=== PATIENT | female | born 1935 | race Caucasian/White ===

== ENCOUNTER → 2016-11-03 | Outpatient (CLI) | payer MEDICARE, OTHER ==
[~2016-11-03] MED LIST: ATOR20TA66 PO; BENZ100C23 PO; CALC600T12 PO; CARB1TAB19 PO; DOCU100C37 PO; ETD300C PO; GABA-486 PO; LEVO75TA PO; MAGN400O7 PO; MAGN400T6 PO; Multivitamins/Minerals Therap PO; OXC10TCR PO; Oxycodone Hcl PO; PANT40TA3 PO; TRAM50TA2 PO; TRIA1TAB5 PO
--- OUTSIDE RECORDS SUMMARY | 2016-11-03 09:41 | XMS REPORT | Continuity of Care Document ---
Author Author [facility] Organization [facility] Address Unknown Phone Unavailable Care Team Providers Care Finishing Operator Name Role Phone NO, LOCAL PHYSICIAN PCP Unavailable Insurance Providers Payer Name Policy Number Subscriber Name Relationship [employer]ps Medicare [id number] Stanley Mcguire 18 Self / Same As Patient [employer] [id number] Kg Mcguire 01 Advance Directives Directive Response Recorded Date/Time Advance Directives Yes 09/06/16 4:27pm Health Care Power of Matrix Drier Tender Y nichole johnson 09/06/16 4:27pm Organ Donor No 09/06/16 4:27pm Resuscitation Status Full Code 09/06/16 4:27pm Chief Complaint and Reason for Visit Chief Complaint DEBILITY Reason for Visit Pelvic fracture Problems Active Problems Medical Problem Onset Date Status Pelvic fracture Unknown Acute Medications Current Home Medications Medication Dose Units Route Directions Days/Qty Instructions Start Date Atorvastatin Calcium 20 Mg 20 Mg Oral Bedtime 30 09/19/16 Etodolac 300 Mg 300 Mg Oral Twice A Day With Meals 30 09/19/16 Oxycodone Hcl 10 Mg 10 Mg Oral Twice A Day 40 09/19/16 Tramadol Hcl 50 Mg 100 Mg Oral Give Every 8 Hrs On Schedule 40 Gabapentin 100 Mg 100 Mg Oral Twice A Day 60 09/19/16 Carbidopa/Levodopa 1 Each 1 Ea Oral Bedtime 30 09/19/16 Calcium Carbonate 600 Mg 600 Mg Oral Daily@0700 30 09/19/16 Triamterene/Hydrochlorothiazid 1 Each 0.5 Ea Oral Daily 30 09/19/16 Benzonatate 100 Mg 100 Mg Oral Three Times A Day 90 09/19/16 Magnesium Oxide 400 Mg 400 Mg Oral Daily 30 09/19/16 Docusate Sodium 100 Mg 100 Mg Oral Twice A Day 60 09/19/16 Magnesium Hydroxide 400 Mg/5 Ml 30 Ml Oral Twice A Day as needed for Constipation 1 09/19/16 Levothyroxine Sodium 75 Mcg 75 Mcg Oral Daily@0630 30 09/19/16 Pantoprazole Sodium 40 Mg 40 Mg Oral Twice Daily Before Meals 40 09/19 [Multivitamins/Minerals Therap] 1 Ea 1 Ea Oral Daily@0700 30 09/19/16 [Oxycodone Hcl] 5 Mg 10 Mg Oral Every 4HRS as needed for Breakthrough Pain 40 09/20/16 Social History Social History Problem Response Recorded Date/Time Alcohol Use Rarely Uses 09/06/2016 4:24pm Recreational Drug Use No 09/06/2016 4:24pm Recent Foreign Travel No 09/06/2016 4:18pm Recent Infectious Disease Exposure No 09/06/2016 4:18pm Hospitalization with Isolation Denies 09/20/2016 4:03pm Sexually Transmitted Disease No 09/06/2016 4:24pm HIV/AIDS No 09/06/2016 4:24pm Smoking Status Never a Smoker 09/06/2016 4:23pm Recent Hopitalizations Y araceli in [place] for hip fx 2016 09/06/2016 4:24pm Sexually Transmitted Disease No 09/06/2016 4:24pm Hospitalization with Isolation Denies 09/20/2016 4:03pm Query Response Start Date Stop Date Smoking Status Never a Smoker Hospital Discharge Instructions No hospital discharge instructions. Plan of Care Discharge Date 09/20/16 3:20pm Disposition 09 ADMITTED INPATIENT Instructions/Education Provided CHRONIC PAIN Preventing Falls in the Older Adult Going Home From the Hospital Pelvic Fracture (DC) Forms Provided Rehab Team Conference Summary Prescriptions See Medication Section Referrals BONITA YOUSSEF MD (Unspecified) - Address: [address] [place] [id number] Reason(s) for Referral: See Dr. Youssef , @ [phone]. (Unspecified) - Today Reason(s) for Referral: Pelvic fracture Care Plan and Goals Functional Status Query Response Date Recorded Patient Orientation Person Place Time Situation September 20, 2016 9:55am Patient Orientation Person Place Time Situation Eyes Open September 20, 2016 4:03pm Comprehension Ability Understands Concepts September 20, 2016 8:10am Allergies, Adverse Reactions, Alerts Allergen Type Severity Reaction Status Last Updated Penicillins ([id number]) Allergy Unknown Active 09/06/16 Tetracyclines ([id number]) Allergy Unknown Active 09/06/16 Sulfa (Sulfonamide Antibiotics) ([id number]) Allergy Unknown Active 06/14 lorazepam ([id number]) Allergy Unknown Active 09/06/16 Clindamycin Allergy Unknown Active 09/06/16 Celecoxib Allergy Unknown Active 09/06/16 rofecoxib ([id number]) Allergy Unknown Active 09/06/16 valdecoxib ([id number]) Allergy Unknown Active 09/06/16 Immunizations No immunization records. Vital Signs Acute Vital Signs Vital Response Date/Time Temperature (Fahrenheit) 95.9 degrees F (97.6 - 99.5) 09/20/2016 3:20pm Temperature (Calculated Celsius) 35.07865 degrees C (36.4 - 37.5) 09/20/2016 5:00am Temperature Source Tympanic 09/20/2016 3:20pm Pulse Rate (adult) 74 bpm (60 - 90) 09/20/2016 3:20pm Respiratory Rate 20 bpm (12 - 24) 09/20/2016 3:20pm O2 Sat by Pulse Oximetry 98 % (88 - 100) 09/20/2016 3:20pm Blood Pressure 127/61 mm Hg 09/20/2016 3:20pm Blood Pressure Mean 83 mm Hg 09/20/2016 5:00am Pain Numeric Pain Scale 3 09/20/2016 3:20pm Height (Feet) 5 feet 09/06/2016 4:18pm Height (Inches) 5.00 inches 09/06/2016 4:18pm Height (Calculated Centimeters) 165.006383 cm 09/06/2016 4:18pm Weight (Pounds) 180 pounds 09/16/2016 6:05am Weight (Ounces) 9.0 oz 09/16/2016 6:05am Weight (Calculated Grams) 29768.773 gm 09/16/2016 6:05am Weight (Calculated Kilograms) 81.309828 kilograms 09/16/2016 6:05am Calculated BMI 30.3 09/06/2016 4:18pm Results Laboratory Results Test Name Result Units Flags Reference Collection Date/Time Result Date/ Time Comments White Blood Count 6.6 10^3/uL 4.3-11.0 09/19/2016 5:am 09/19/2016 8: 24am Red Blood Count 3.73 10^6/uL L 4.35-5.85 09/19/2016 5:09/19/2016 8: 24am Hemoglobin 10.8 G/DL L 11.5-16.0 09/19/2016 5:09/19/2016 8:24am Hematocrit 35 % 35-52 09/19/2016 5:09/19/2016 8:24am Mean Corpuscular Volume 93 FL 80-99 09/19/2016 5:09/19/2016 8: 24am Mean Corpuscular Hemoglobin 29 PG 25-34 09/19/2016 5:09/19/2016 8: 24am Mean Corpuscular Hemoglobin Concent 31 G/DL L 32-36 09/19/2016 5: 8:24am Red Cell Distribution Width 15.8 % H 10.0-14.5 09/19/2016 5:2015 8:24am Platelet Count 399 10^3/uL 130-400 09/19/2016 5:09/19/2016 8:24am Mean Platelet Volume 9.3 FL 7.4-10.4 09/19/2016 5:am 09/19/2016 8: 24am Neutrophils (%) (Auto) 50 % 42-75 09/14/2016 5:54am 09/14/2016 6:13am Lymphocytes (%) (Auto) 24 % 12-44 09/14/2016 5:54am 09/14/2016 6:13am Monocytes (%) (Auto) 13 % H 0-12 09/14/2016 5:54am 09/14/2016 6:13am Eosinophils (%) (Auto) 13 % H 0-10 09/14/2016 5:54am 09/14/2016 6:13am Basophils (%) (Auto) 0 % 0-10 09/14/2016 5:54am 09/14/2016 6:13am Neutrophils # (Auto) 3.2 X 10^3 1.8-7.8 09/14/2016 5:54am 09/14/2016 6: 13am Lymphocytes # (Auto) 1.5 X 10^3 1.0-4.0 09/14/2016 5:54am 09/14/2016 6: 13am Monocytes # (Auto) 0.8 X 10^3 0.0-1.0 09/14/2016 5:54am 09/14/2016 6: 13am Eosinophils # (Auto) 0.8 10^3/uL H 0.0-0.3 09/14/2016 5:54am 09/14/2016 6 :13am Basophils # (Auto) 0.0 10^3/uL 0.0-0.1 09/14/2016 5:54am 09/14/2016 6: 13am Neutrophils % (Manual) 55 % 09/14/2016 5:54am 09/14/2016 6:55am Band Neutrophils 0 % 09/14/2016 5:54am 09/14/2016 6:55am Lymphocytes % (Manual) 18 % 09/14/2016 5:54am 09/14/2016 6:55am Monocytes % (Manual) 17 % 09/14/2016 5:54am 09/14/2016 6:55am Eosinophils % (Manual) 10 % 09/14/2016 5:54am 09/14/2016 6:55am Basophils % (Manual) 0 % 09/14/2016 5:54am 09/14/2016 6:55am Hypochromasia SLIGHT 09/14/2016 5:54am 09/14/2016 6:55am Poikilocytosis SLIGHT 09/14/2016 5:54am 09/14/2016 6:55am Anisocytosis SLIGHT 09/14/2016 5:54am 09/14/2016 6:55am Urine Color YELLOW 09/12/2016 9:55pm 09/12/2016 10:11pm Urine Clarity CLEAR 09/12/2016 9:55pm 09/12/2016 10:11pm Urine pH 7 5-9 09/12/2016 9:55pm 09/12/2016 10:11pm Urine Specific [place] 1.005 * 1.016-1.022 09/12/2016 9:55pm 2015 10:11pm Urine Protein NEGATIVE NEGATIVE 09/12/2016 9:55pm 09/12/2016 10:11pm Urine Glucose (UA) NEGATIVE NEGATIVE 09/12/2016 9:55pm 09/12/2016 10: 11pm Urine RBC (Auto) NEGATIVE NEGATIVE 09/12/2016 9:55pm 09/12/2016 10: 11pm Urine Ketones NEGATIVE NEGATIVE 09/12/2016 9:55pm 09/12/2016 10:11pm Urine Nitrite NEGATIVE NEGATIVE 09/12/2016 9:55pm 09/12/2016 10:11pm Urine Bilirubin NEGATIVE NEGATIVE 09/12/2016 9:55pm 09/12/2016 10: 11pm Urine Urobilinogen NORMAL MG/DL NORMAL 09/12/2016 9:55pm 09/12/2016 10: 11pm Urine Leukocyte Esterase 1+ * NEGATIVE 09/12/2016 9:55pm 09/12/2016 10: 11pm Urine RBC NONE /HPF 09/12/2016 9:55pm 09/12/2016 10:11pm Urine WBC 0-2 /HPF 09/12/2016 9:55pm 09/12/2016 10:11pm Urine Bacteria NEGATIVE /HPF 09/12/2016 9:55pm 09/12/2016 10:11pm Urine Crystals NONE /LPF 09/12/2016 9:55pm 09/12/2016 10:11pm Urine Casts NONE /LPF 09/12/2016 9:55pm 09/12/2016 10:11pm Urine Mucus NEGATIVE /LPF 09/12/2016 9:55pm 09/12/2016 10:11pm Urine Culture Indicated NO 09/12/2016 9:55pm 09/12/2016 10:11pm Sodium Level 134 MMOL/L L 135-145 09/20/2016 5:40am 09/20/2016 6:46am Potassium Level 3.5 MMOL/L L 3.6-5.0 09/20/2016 5:40am 09/20/2016 6:46am Chloride Level 95 MMOL/L L 98-107 09/20/2016 5:40am 09/20/2016 6:46am Carbon Dioxide Level 26 MMOL/L -09/20/2016 5:40am 09/20/2016 6: 46am Anion Gap 13 MMOL/L 5-09/20/2016 5:40am 09/20/2016 6:46am Blood Urea Nitrogen 9 MG/DL -09/20/2016 5:40am 09/20/2016 6:46am Creatinine 1.01 MG/DL 0.60-1.30 09/20/2016 5:40am 09/20/2016 6:46am BUN/Creatinine Ratio 9 09/20/2016 5:40am 09/20/2016 6:46am Estimat Glomerular Filtration Rate 53 09/20/2016 5:40am 09/20/2016 6:46am GFR INTERPRETIVE DATA UNITS FOR ESTIMATED GFR (eGFR): mL/min/1.73 M2 REFERENCE RANGE FOR ESTIMATED GFR (eGFR) eGFR NORMAL eGFR >60 MODERATELY DECREASED eGFR 30-59 SEVERLY DECREASED eGFR 15-29 KIDNEY FAILURE <15 (OR DIALYSIS) Glucose Level 81 MG/DL 70-105 09/20/2016 5:40am 09/20/2016 6:46am Calcium Level 9.3 MG/DL 8.5-10.1 09/20/2016 5:40am 09/20/2016 6:46am Total Bilirubin 0.6 MG/DL 0.1-1.0 09/13/2016 6:18am 09/13/2016 6:47am Alkaline Phosphatase 78 U/L 40-136 09/13/2016 6:18am 09/13/2016 6:47am Aspartate Amino Transf (AST/SGOT) 25 U/L 5-34 09/13/2016 6:18am 2015 6:47am Alanine Aminotransferase (ALT/SGPT) 17 U/L 0-55 09/13/2016 6:18am 09/13 6:47am Total Protein 5.8 G/DL L 6.4-8.2 09/13/2016 6:18am 09/13/2016 6:47am Albumin 3.1 G/DL L 3.2-4.5 09/13/2016 6:18am 09/13/2016 6:47am Thyroid Stimulating Hormone (TSH) 0.02 UIU/ML L 0.35-4.94 09/07/2016 7: 18am 09/07/2016 12:54pm Stool Occult Blood Immunoassay POSITIVE * NEGATIVE 09/19/2016 8:50pm 10:16pm Vitamin B12 Level 1481 pg/mL H 200-1000 09/09/2016 10:15am 09/12/2016 11: 53am Test performed at [facility], CLIA# [id number] [address] [place] [address] Procedures No known history of procedures. Encounters Encounter Location Arrival/Admit Date Discharge/Depart Date Attending Provider Discharged Inpatient [facility] 09/06/16 3:10pm 3:20pm OSCAR LUONG MD Recent Diagnosis Pelvic fracture
--- NOTE | 2016-11-03 15:41 | Diagnostic Imaging Report ---
Examination: DEXA scan. Indication: osteopenia Technique: Bone mineral density estimated based on dual energy radiography over the lumbar spine and femoral necks, was performed. Findings: The lumbar spine T-score is -0.4. T score over the left femoral neck is -0.8 and on the right side is -0.8. Impression: Bone mineral density measurements near the lower limits of normal.. Dictated by: Dictated on workstation # [id number]
== END ==
LOC: RAD 09:37
PROVIDERS: ATTEND Orthopaedic Surgery
DX: M81.0 Age-related osteoporosis without current pathological fracture (principal)
CPT/HCPCS: 77080

== ENCOUNTER 2018-10-16 05:35 | Outpatient (CLI) | payer MEDICARE ==
[~2018-10-16] VITALS: Ht 160 cm; Wt 81.9 kg
[~2018-10-16 05:35] MED LIST changes: +BENZ-36 PO; -BENZ100C23 PO
[2018-10-16] MEDS ORDERED: LEVO100T7 PO (10:28)
[2018-10-16] MEDS ORDERED: UBID1CAP53 PO (10:28)
[2018-10-16] MEDS ORDERED: CARB1TAB44 PO (10:28)
[2018-10-16] MEDS ORDERED: ZOLP5TAB7 PO (10:28)
[2018-10-16] MEDS ORDERED: GABA-486 PO (10:28)
[2018-10-16] MEDS ORDERED: NF-ESOM40C PO (10:28)
[2018-10-16] MEDS ORDERED: DICL75TA2 PO (10:28)
[2018-10-16] MEDS ORDERED: LUTE40CA PO (10:30)
== END 2018-10-16 10:45 ==
LOC: PREOP 05:35
PROVIDERS: ATTEND Otolaryngology Otolaryngology/Facial Plastic Surgery
DX: Z01.818 Encounter for other preprocedural examination (principal)

== ENCOUNTER 2018-10-19 09:29 | Day surgery (SDC) | payer MEDICARE, OTHER ==
[~2018-10-19] VITALS: Ht 160 cm; Wt 81.9 kg
[~2018-10-19 09:29] MED LIST changes: +CARB1TAB44 PO; +DICL75TA2 PO; +LEVO100T7 PO; +LUTE40CA PO; +NF-ESOM40C PO; +UBID1CAP53 PO; +ZOLP5TAB7 PO
[2018-10-19 09:35] VITALS: BP 174/82
--- NOTE | 2018-10-19 10:27 | Progress Note-Pre Operative ---
Pre-Operative Progress Note H&P Reviewed The H&P was reviewed, patient examined and no changes noted. Date Seen by Provider: Oct 19, 2018 Time Seen by Provider: 10:30 Date H&P Reviewed: Oct 19, 2018 Time H&P Reviewed: 10:30 Pre-Operative Diagnosis: Skin cancer-Nose UDAY CALDWELL MD Oct 19, 2018 10:27
[2018-10-19] MEDS ORDERED: proPOfol 200 MG/20 ML (DIPRIVAN) VIAL IV ONE (10:44)
[2018-10-19] MEDS ORDERED: LIDOCAINE PF 2% 5 ML (XYLOCAINE) VIAL ONE (10:44)
[2018-10-19] MEDS ORDERED: ONDANSETRON 4 MG/2 ML (SDV) Z0FRAN ONE (10:44)
[2018-10-19] MEDS ORDERED: ROCURONIUM 10 MG/ML 5 ML SYRINGE IV ONE (10:44)
[2018-10-19] MEDS ORDERED: DEXAMETHASONE 10 MG/ML (DECADRON) 1 ML VIAL ONE (10:44)
[2018-10-19] MEDS ORDERED: SEVOFLURANE (ULTANE) 15 ML INHAL SOLN ONE ×4 (10:45→12:23)
[2018-10-19] MEDS ORDERED: fentaNYL INJECTION 100 MCG/2 ML AMP ONE (10:45)
[2018-10-19 11:06] LABS: BASOPHILS # (AUTO) 0.1 10^3/uL (0.0-0.1); BASOPHILS % (AUTO) 1 % (0-10); EOSINOPHILS # (AUTO) 0.2 10^3/uL (0.0-0.3); EOSINOPHILS % (AUTO) 4 % (0-10); HEMATOCRIT 37 % (35-52); HEMOGLOBIN 12.1 G/DL (11.5-16.0); LYMPHOCYTES # (AUTO) 1.4 X 10^3 (1.0-4.0); LYMPHOCYTES % (AUTO) 22 % (12-44); MEAN CORPUSCULAR HEMOGLOBIN 30 PG (25-34); MEAN CORPUSCULAR HGB CONC 32 G/DL (32-36); MEAN CORPUSCULAR VOLUME 91 FL (80-99); MEAN PLATELET VOLUME 9.2 FL (7.4-10.4); MONOCYTES # (AUTO) 0.6 X 10^3 (0.0-1.0); MONOCYTES % (AUTO) 9 % (0-12); NEUTROPHILS # (AUTO) 4.1 X 10^3 (1.8-7.8); NEUTROPHILS % (AUTO) 65 % (42-75); PLATELET COUNT 235 10^3/uL (130-400); RED CELL DISTRIBUTION WIDTH 14.7 % (10.0-14.5); WHITE BLOOD COUNT 6.4 10^3/uL (4.3-11.0)
[2018-10-19 11:23] LABS: CALCIUM 9.1 MG/DL (8.5-10.1); CREATININE SERUM 1.13 MG/DL (0.60-1.30); POTASSIUM 3.5 MMOL/L (3.6-5.0)
[2018-10-19] MEDS ORDERED: LIDOCAINE/EPI 1%-1:100,000 (XYLOCAINE) 20ML ONE (11:38)
[2018-10-19] MEDS ORDERED: MUPIROCIN 2% OINT 22 GM (BACTROBAN) TUBE ONE (11:55)
[2018-10-19] MEDS ORDERED: BSS 15 ML ONE (12:07)
--- NOTE | 2018-10-19 12:08 | Progress Note-Post Operative ---
Post-Operative Progess Note Surgeon (s)/Demonstrator Knitting (s) Surgeon UDAY CALDWELL MD Demonstrator Knitting n/a Pre-Operative Diagnosis Skin cancer-Nose Post-Operative Diagnosis same Post-Op Procedure Note Date of Procedure: Oct 19, 2018 Name of Procedure Performed: Excision of Left nasal dorsum basal kenya lwith repair with local advancement flap Description & Findings Description and Findings: n/a Anesthesia Type get Estimated Blood Loss minimal Packing none. Specimen(s) collected/removed Left Nasal lesion to patholgy for review UDAY CALDWELL MD Oct 19, 2018 12:08
[2018-10-19] MEDS ORDERED: HYDROcodone/APAP 5 MG/325 MG (LORTAB) TAB PO PRN (12:15)
[2018-10-19] MEDS ORDERED: ACETAMINOPHEN 325 MG TABLET PO PRN (12:15)
[2018-10-19] MEDS ORDERED: NEOSTIGMINE 1 MG/ML 5 ML SYRINGE ONE (12:18)
[2018-10-19] MEDS ORDERED: GLYCOPYRROLATE 0.2 MG/ML (ROBINUL) 2 ML VIAL ONE (12:18)
[2018-10-19 13:25] VITALS: BP 143/77
[2018-10-19 13:55] VITALS: BP 142/57
[2018-10-19] MEDS ORDERED: LACTATED RINGERS 1,000 ML IV PRN (14:11)
[2018-10-19] MEDS ORDERED: HYDR-3812 PO (14:15)
[2018-10-19 14:25] VITALS: BP 129/65
[2018-10-19 14:35] VITALS: BP 129/65
== END 2018-10-19 14:35 | disposition home or self-care (01) ==
LOC: SDC 09:29
PROVIDERS: ATTEND Otolaryngology Otolaryngology/Facial Plastic Surgery
DX: C44.311 Basal cell carcinoma of skin of nose (principal); I48.91 Unspecified atrial fibrillation; K21.9 Gastro-esophageal reflux disease without esophagitis; N39.0 Urinary tract infection, site not specified; Z79.899 Other long term (current) drug therapy
CPT/HCPCS: 36415; 80048; 85025; 87081; 93005

== ENCOUNTER 2021-09-17 15:19 | Emergency (ER) | payer MEDICARE, OTHER ==
[~2021-09-17] VITALS: Ht 162.5 cm; Wt 79.4 kg
[~2021-09-17 15:19] MED LIST changes: +ACHD5005 PO; -CALC600T12 PO; +CALC600T91 PO; -MAGN400T6 PO; +MGX400T PO; -PANT40TA3 PO; +PANT40TA52 PO; -TRAM50TA2 PO; +TRM50T PO
[2021-09-17] MEDS ORDERED: ACETAMINOPHEN 500 MG TAB (TYLENOL) ONE (15:37)
--- NOTE | 2021-09-17 15:37 | ED General ---
General Chief Complaint: Fever-Adult/Adol Stated Complaint: WEAKNESS, N/V Nursing Triage Note: PT TO [facility] 7 BY WHEELCHAIR WITH COMPLAINT OF FEVER, NAUSEA, VOMITING, DIARRHEA, WEAKNESS SINCE MONDAY. PER DAUGHTER, SHE TOOK PT TO [facility] IN [place] ON MONDAY. TESTED NEGATIVE FOR FLU, COVID. Source of Information: Patient, Family Exam Limitations: No Limitations History of Present Illness Date Seen by Provider: Sep 17, 2021 Time Seen by Provider: 15:33 Initial Comments to ER by private vehicle accompanied by daughter from home. Patient lives in [facility] and sees Dr. Ibrahim. Her daughter lives here in [place]. Starting on 09/12/2021 patient had intermittent fevers up to 102 degrees, general weakness, nausea and diarrhea. She has only had diarrhea twice today and is nonbloody. She denies abdominal pain. She denies pain anywhere except for some body aches. She has had some urinary symptoms. She was seen at [facility] in [place] last week for the symptoms tested negative for Covid, negative for influenza and was diagnosed with urinary tract infection and put empirically on cephalexin 500 mg 4 times daily. She has a history of hyponatremia & pneumonia a few months ago at [facility]. They have been limiting water intake and using Gatorade instead to help replenish sodium. She denies any cough. Timing/Duration: 1 Week Severity: Moderate Associated Systoms: Nausea/Vomiting, Weakness Allergies and Home Medications Allergies Coded Allergies: clindamycin (Verified Allergy, Severe, GI UPSET/SEVERE DIARRHEA, 10/16/18) rofecoxib (Verified Allergy, Severe, IRR HR, 10/16/18) Penicillins (Verified Allergy, Mild, RASH, 10/16/18) Sulfa (Sulfonamide Antibiotics) (Verified Allergy, Mild, HIVES, 10/16/18) celecoxib (Verified Allergy, Mild, HIVES, 10/16/18) lorazepam (Verified Allergy, Mild, RASH, 10/16/18) valdecoxib (Verified Allergy, Mild, RASH, 10/16/18) Tetracyclines (Verified Allergy, Unknown, 09/06/16) Patient Home Medication List Home Medication List Reviewed: Yes Atorvastatin Calcium (Atorvastatin Calcium) 20 Mg Tablet, 20 MG PO HS Prescribed by: OSCAR LUONG on 09/19/16 2496 Calcium Carbonate (Calcium) 600 Mg Tablet, 600 MG PO DAILY@0700 Prescribed by: OSCAR LUONG on 09/19/16 170 Carbidopa/Levodopa (Carbidopa-Levo 25-100 mg Odt) 1 Each Tab.rapdis, 2 EACH PO HS, (Reported) Entered as Reported by: BETH LUCAS on 10/16/18 1028 Diclofenac Sodium (Diclofenac Sodium) 75 Mg Tablet.dr, 75 MG PO BID, (Reported) Entered as Reported by: BETH LUCAS on 10/16/18 1028 Esomeprazole Magnesium (Nexium) 40 Mg Cap, 40 MG PO DAILY, (Reported) Entered as Reported by: BETH LUCAS on 10/16/18 1028 Gabapentin (Gabapentin) 100 Mg Capsule, 100 MG PO TID PRN for PAIN-MILD, (Reported) Entered as Reported by: BETH LUCAS on 10/16/18 1028 Hydrocodone Bit/Acetaminophen (Lortab 5 Mg Tablet) 1 Each Tablet, 1 EACH PO Q4H PRN for PAIN-MODERATE Prescribed by: VIK DOUGLASS on 10/19/18 1415 Levothyroxine Sodium (Levothyroxine Sodium) 100 Mcg Tablet, 100 MCG PO DAILY, (Reported) Entered as Reported by: BETH LUCAS on 10/16/18 1028 Lutein (Lutein) 40 Mg Capsule, 40 MG PO DAILY, (Reported) Entered as Reported by: BETH LUCAS on 10/16/18 1030 Magnesium Oxide (Magnesium Oxide) 400 Mg Tablet, 400 MG PO DAILY Prescribed by: OSCAR LUONG on 09/19/16 170 Triamterene/Hydrochlorothiazid (Triamterene-Hctz 75-50 mg Tab) 1 Each Tablet, 0.5 EA PO DAILY Prescribed by: OSCAR LUONG on 09/19/161708 Ubidecarenone/Vit E Acetate (Co Q-10 100 mg Softgel) 1 Each Capsule, 1 EACH PO TWICE A WEEK, (Reported) Entered as Reported by: BETH LUCAS on 10/16/18 1028 Zolpidem Tartrate (Zolpidem Tartrate) 5 Mg Tablet, 5 MG PO HS PRN for SLEEP, (Reported) Entered as Reported by: BETH LUCAS on 10/16/18 1028 [Multivitamins/Minerals Therap] 1 EA TABLET, 1 EA PO DAILY@0700 Prescribed by: OSCAR LUONG on 09/19/16 1709 Review of Systems Review of Systems Constitutional: see HPI, fever, malaise, weakness EENTM: see HPI Respiratory: no symptoms reported Cardiovascular: no symptoms reported Gastrointestinal: diarrhea, nausea, vomiting Genitourinary: dysuria Musculoskeletal: no symptoms reported Skin: no symptoms reported Psychiatric/Neurological: No Symptoms Reported Hematologic/Lymphatic: No Symptoms Reported Immunological/Allergic: no symptoms reported Past Wstzfei-Xskixb-Mmvqkj Hx Patient Social History Tobacco Use?: No Use of E-Cig and/or Vaping dev: No Substance use?: No Alcohol Use?: No Pt feels they are or have been: No Immunizations Up To Date Tetanus Booster (TDap): More than 5yrs Influenza Vaccine Up-to-Date: Yes; Up-to-Date First/Initial COVID19 Vaccinat: JANUARY 2021 Second COVID19 Vaccination Mauricio: JANUARY 2021 COVID19 Vaccine Bodywork Therapist: [place] Seasonal Allergies Seasonal Allergies: Yes Past Medical History Appendectomy, Hysterectomy, Oophorectomy, Tonsillectomy Currently Using CPAP: No Currently Using BIPAP: No Reproductive Disorders: No Female Reproductive Disorders: Denies Sexually Transmitted Disease: No HIV/AIDS: No UTI-Chronic Gastroesophageal Reflux Arthritis, Back Injury, Chronic Back Pain Hypothyroidsim Loss of Vision: Bilateral Hearing Impairment: Hard of Hearing Skin Adverse Reaction/Blood Tranf: No (N/A) Family Medical History Bone cancer G8 SISTER Diabetes mellitus 19 MOTHER FH: ovarian cancer G8 SISTER Hypertension 19 MOTHER Thyroid disease G8 SISTER Tuberculosis 19 FATHER (54 ) Physical Exam Vital Signs Vital Signs - First Documented 09/17/21 15:19 Temp 38.9 Pulse 80 Resp 21 B/P (MAP) 135/85 (102) Pulse Ox 96 O2 Delivery Room Air Capillary Refill : Less Than 3 Seconds Height, Weight, BMI Height: 5'3.00" Weight: 180lbs. 9.0oz. 81.050409mc; 30.00 BMI Method: General Appearance: No Apparent Distress, WD/WN, Other (Febrile at this time orally 102 degrees, not tachycardic, heart rate is in the 80s atrial fibrillation. Daughter states that she does have a history remotely of atrial fibrillation but it went away after IV fluids and seems to have never returned so she is not on anticoagulation.) Eyes: Bilateral Eye Normal Inspection, Bilateral Eye PERRL, Bilateral Eye EOMI Neck: Full Range of Motion, Normal Inspection Respiratory: No Accessory Muscle Use, No Respiratory Distress Cardiovascular: Normal Peripheral Pulses, Irregularly Irregular Gastrointestinal: Normal Bowel Sounds, Non Tender, Soft Neurologic/Psychiatric: Oriented x3, Other (Somnolent but oriented and participates in conversation.) Skin: Normal Color, Warm/Dry Focused Exam Lactate Level 09/17/21 16:13: Lactic Acid Level 0.84 Lactic Acid Level Laboratory Tests Test 09/17/21 16:13 Lactic Acid Level 0.84 MMOL/L (0.50-2.00) Procedures/Interventions IV : Location: Right Site: Antecubital IV Catheter Type: Peripheral IV IV Catheter Gauge: 20 Progress/Results/Core Measures Suspected Sepsis SIRS Temperature: Pulse: 80 Respiratory Rate: 21 Laboratory Tests 09/17/21 16:13: White Blood Count 12.1H Blood Pressure 135 /85 Mean: 102 09/17/21 16:13: Lactic Acid Level 0.84 Laboratory Tests 09/17/21 16:13: Creatinine 0.89, INR Comment 1.1, Platelet Count 173, Total Bilirubin 0.4 Results/Orders Lab Results Laboratory Tests Test 09/17/21 15:34 09/17/21 16:13 09/17/21 17:48 Range/Units Influenza Type A (RT-PCR) Not Detected Not Detecte Influenza Type B (RT-PCR) Not Detected Not Detecte SARS-CoV-2 RNA (RT-PCR) Not Detected Not Detecte White Blood Count 12.1 H 4.3-11.0 10^3/uL Red Blood Count 3.94 3.80-5.11 10^6/uL Hemoglobin 11.6 11.5-16.0 g/dL Hematocrit 36 35-52 % Mean Corpuscular Volume 90 80-99 fL Mean Corpuscular Hemoglobin 29 25-34 pg Mean Corpuscular Hemoglobin Concent 33 32-36 g/dL Red Cell Distribution Width 14.4 10.0-14.5 % Platelet Count 173 130-400 10^3/uL Mean Platelet Volume 9.3 9.0-12.2 fL Immature Granulocyte % (Auto) 0 % Neutrophils (%) (Auto) 63 42-75 % Lymphocytes (%) (Auto) 21 12-44 % Monocytes (%) (Auto) 15 H 0-12 % Eosinophils (%) (Auto) 1 0-10 % Basophils (%) (Auto) 0 0-10 % Neutrophils # (Auto) 7.6 1.8-7.8 X 10^3 Lymphocytes # (Auto) 2.6 1.0-4.0 X 10^3 Monocytes # (Auto) 1.8 H 0.0-1.0 X 10^3 Eosinophils # (Auto) 0.1 0.0-0.3 10^3/uL Basophils # (Auto) 0.0 0.0-0.1 10^3/uL Immature Granulocyte # (Auto) 0.0 0.0-0.1 10^3/uL Prothrombin Time 14.6 12.2-14.7 SEC INR Comment 1.1 0.8-1.4 Activated Partial Thromboplast Time 26 24-35 SEC Sodium Level 129 L 135-145 MMOL/L Potassium Level 3.4 L 3.6-5.0 MMOL/L Chloride Level 98 98-107 MMOL/L Carbon Dioxide Level 21 21-32 MMOL/L Anion Gap 10 5-14 MMOL/L Blood Urea Nitrogen 13 7-18 MG/DL Creatinine 0.89 0.60-1.30 MG/DL Estimat Glomerular Filtration Rate 61 BUN/Creatinine Ratio 15 Glucose Level 102 70-105 MG/DL Lactic Acid Level 0.84 0.50-2.00 MMOL/L Calcium Level 7.6 L 8.5-10.1 MG/DL Corrected Calcium 8.3 L 8.5-10.1 MG/DL Total Bilirubin 0.4 0.1-1.0 MG/DL Aspartate Amino Transf (AST/SGOT) 24 5-34 U/L Alanine Aminotransferase (ALT/SGPT) 25 0-55 U/L Alkaline Phosphatase 62 40-136 U/L B-Type Natriuretic Peptide 173.4 H <100.0 PG/ML Total Protein 5.9 L 6.4-8.2 GM/DL Albumin 3.1 L 3.2-4.5 GM/DL Procalcitonin 0.21 H <0.10 NG/ML Urine Color YELLOW Urine Clarity CLEAR Urine pH 6.5 5-9 Urine Specific [place] 1.010 L 1.016-1.022 Urine Protein 1+ H NEGATIVE Urine Glucose (UA) NEGATIVE NEGATIVE Urine Ketones NEGATIVE NEGATIVE Urine Nitrite NEGATIVE NEGATIVE Urine Bilirubin NEGATIVE NEGATIVE Urine Urobilinogen 0.2 < = 1.0 MG/DL Urine Leukocyte Esterase NEGATIVE NEGATIVE Urine RBC (Auto) 1+ H NEGATIVE Urine RBC 2-5 H /HPF Urine WBC 2-5 /HPF Urine Crystals NONE /LPF Urine Bacteria TRACE /HPF Urine Casts NONE /LPF Urine Mucus NEGATIVE /LPF Urine Culture Indicated CULTURE PENDING My Orders Orders - KIMMY GASPAR APRN Cbc With Automated Diff (09/17/21 15:31) Comprehensive Metabolic Panel (09/17/21:) Blood Culture (09/17/21:) Sputum Culture (09/17/21:) Urinalysis (09/17/21:) Urine Culture (09/17/21:) Protime With Inr (09/17/21:) Partial Thromboplastin Time (09/17/21:31) Chest 1 View, Ap/Pa Only (09/17/21 15:31) Ed Iv/Invasive Line Start (09/17/21 15:31) Ed Iv/Invasive Line Start (09/17/21 15:31) Vital Signs Adult Sepsis Patie Q15M (09/17/21 15:31) O2 (09/17/21 15:31) Remove Rings In Anticipation O (09/17/21:31) Lactic Acid Analyzer (09/17/21 15:31) Covid 19 Inhouse Test (09/17/21 15:31) Influenza A And B By Pcr (09/17/21 15:31) Straight Cath (Urinary) (09/17/21 15:31) Ns Iv 1000 Ml (Sodium Chloride 0.9%) (09/17/21 15:45) BNP (09/17/21 15:31) Procalcitonin (Pct) (09/17/21 15:31) Acetaminophen Tablet (Tylenol Tablet) (09/17/21 15:45) Acetaminophen Tablet (Tylenol Tablet) (09/17/21 15:37) Ct Abdomen/Pelvis W (09/17/21 18:28) Iohexol Injection (Omnipaque 350 Mg/Ml 1 (09/17/21 18:45) Received Contrast (Hold Metformin- Contr (09/17/21 18:45) Ns (Ivpb) (Sodium Chloride 0.9% Ivpb Bag (09/17/21 18:45) Medications Given in ED Current Medications Medications Dose Ordered Sig/[place] Route Start Time Stop Time Status Last Admin Dose Admin Acetaminophen 1,000 mg ONCE ONCE PO 09/17/21 15:45 09/17/21 15:46 DC 09/17/21 15:42 1,000 MG Iohexol 100 ml ONCE ONCE IV 09/17/21 18:45 09/17/21 18:46 DC 09/17/21 18:50 100 ML Sodium Chloride 100 ml ONCE ONCE IV 09/17/21 18:45 09/17/21 18:46 DC 09/17/21 18:51 80 ML Vital Signs/I&O 09/17/21 15:19 Temp 38.9 Pulse 80 Resp 21 B/P (MAP) 135/85 (102) Pulse Ox 96 O2 Delivery Room Air Capillary Refill : Less Than 3 Seconds Blood Pressure Mean: 102 Diagnostic Imaging Diagonstic Imaging: CT Comments NAME: STANLEY QUESADA [facility] REC#: [id number] PT STATUS: REG ER : 1935 PHYSICIAN: KIMMY GASPAR APRN ADMIT DATE: 09/17/21/ER Draft Date of Exam:09/17/21 CT ABDOMEN/PELVIS W PROCEDURE: CT abdomen and pelvis with contrast. TECHNIQUE: Multiple contiguous axial images were obtained through the abdomen and pelvis after administration of intravenous contrast. Auto Exposure Controls were utilized during the CT exam to meet ALARA standards for radiation dose reduction. All CT scans use one or more of the following dose optimizing techniques: automated exposure control, MA and/or KvP adjustment based on patient size and exam type or iterative reconstruction. INDICATION: Fever and diarrhea, nausea, vomiting, weakness. COMPARISON: None. FINDINGS: There is atelectasis in the lung bases. There is a calcified granuloma in the right lung base. The heart is mildly large. There is no pericardial effusion. The liver demonstrates no focal lesions. The spleen appears normal. The pancreas is unremarkable. The adrenal glands appear normal. The kidneys demonstrate no hydronephrosis or enhancing masses. The kidneys appear mildly atrophic, likely from senescent change. There is a small hiatal hernia. The bowel loops are nondistended with no wall thickening or evidence of obstruction. The appendix is not seen, but there are no secondary findings of appendicitis. There is extensive diverticulosis of the colon without diverticulitis. No free fluid or free air is seen. There are few mildly prominent retroperitoneal lymph nodes, measuring up to 9 mm in short axis. The aorta is normal in caliber. No acute osseous abnormality is seen. There is sequela from old trauma in the pelvis. There are severe degenerative changes in the lumbar spine.The surrounding soft tissues demonstrate no acute abnormality. IMPRESSION: 1. No bowel obstruction. 2. Mildly prominent retroperitoneal lymph nodes, may be reactive. 3. Small hiatal hernia. 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 COMPARISON: 09/13/2016. FINDINGS: Central vascular indistinctness is unchanged. Left basilar ill-defined opacities are stable. No pleural effusion or pneumothorax. Stable cardiomegaly. IMPRESSION: 1. Persistent bilateral perihilar opacities could be due to atelectasis and chronic central vascular congestion. Dictated by: Dictated on workstation # [id number] Dict: 09/17/21 1556 Trans: 09/17/21 1601 [facility] [id number] Interpreted by: DINORAH JOYCE MD Electronically signed by: DINORAH JOYCE MD 09/17/21 1601 Impression Primary Impression: Febrile illness Disposition: 01 HOME, SELF-CARE Condition: Stable Departure-Patient Inst. Decision time for Depature: 19:47 Referrals: BONIAT JIN MD (PCP/Family) Primary Care Physician Patient Instructions: Fever of Unknown Origin Add. Discharge Instructions: . The fever may be secondary to a viral syndrome. You can stop taking the cephalexin. Use Tylenol and ibuprofen for fevers. Return to ER for any worsening. Follow-up with your doctor next week for recheck. All discharge instructions reviewed with patient and/or family. Voiced understanding. KIMMY GASPAR APRN Sep 17, 2021 15:37
[2021-09-17] MEDS ORDERED: ACETAMINOPHEN 500 MG TAB (TYLENOL) PO ONE (15:45)
[2021-09-17] MEDS ORDERED: NS IV 1000 ML 1,000 ML IV SCH (15:45)
--- NOTE | 2021-09-17 16:00 | Diagnostic Imaging Report ---
CHEST 1 VIEW, AP/PA ONLY INDICATION: Sepsis. COMPARISON: 09/13/2016. FINDINGS: Central vascular indistinctness is unchanged. Left basilar ill-defined opacities are stable. No pleural effusion or pneumothorax. Stable cardiomegaly. IMPRESSION: 1. Persistent bilateral perihilar opacities could be due to atelectasis and chronic central vascular congestion. Dictated by: Dictated on workstation # [id number]
[2021-09-17 16:32] LABS: BASOPHILS % (AUTO) 0 % (0-10); EOSINOPHILS # (AUTO) 0.1 10^3/uL (0.0-0.3); EOSINOPHILS % (AUTO) 1 % (0-10); HEMATOCRIT 36 % (35-52); HEMOGLOBIN 11.6 g/dL (11.5-16.0); LYMPHOCYTES # (AUTO) 2.6 X 10^3 (1.0-4.0); LYMPHOCYTES % (AUTO) 21 % (12-44); MEAN CORPUSCULAR HEMOGLOBIN 29 pg (25-34); MEAN CORPUSCULAR HGB CONC 33 g/dL (32-36); MEAN CORPUSCULAR VOLUME 90 fL (80-99); MEAN PLATELET VOLUME 9.3 fL (9.0-12.2); MONOCYTES # (AUTO) 1.8 X 10^3 (0.0-1.0); MONOCYTES % (AUTO) 15 % (0-12); NEUTROPHILS # (AUTO) 7.6 X 10^3 (1.8-7.8); NEUTROPHILS % (AUTO) 63 % (42-75); PLATELET COUNT 173 10^3/uL (130-400); WHITE BLOOD COUNT 12.1 10^3/uL (4.3-11.0)
[2021-09-17 16:39] LABS: ALBUMIN 3.1 GM/DL (3.2-4.5)
[2021-09-17 16:40] LABS: POTASSIUM 3.4 MMOL/L (3.6-5.0)
[2021-09-17 16:41] LABS: CALCIUM 7.6 MG/DL (8.5-10.1)
[2021-09-17 16:42] LABS: INR 1.1 (0.8-1.4); PROTHROMBIN TIME PATIENT 14.6 SEC (12.2-14.7); TOTAL PROTEIN 5.9 GM/DL (6.4-8.2)
[2021-09-17 16:44] LABS: BILIRUBIN,TOTAL 0.4 MG/DL (0.1-1.0)
[2021-09-17 16:46] LABS: CREATININE SERUM 0.89 MG/DL (0.60-1.30)
[2021-09-17 17:55] LABS: BILIRUBIN,URINE NEGATIVE (NEGATIVE); CLARITY,URINE CLEAR; COLOR,URINE YELLOW; GLUCOSE, URINE (UA) NEGATIVE (NEGATIVE); KETONES,URINE NEGATIVE (NEGATIVE); LEUKOCYTE ESTERASE ,URINE NEGATIVE (NEGATIVE); NITRITE,URINE NEGATIVE (NEGATIVE); PH,URINE 6.5 (5-9); PROTEIN,URINE 1+ (NEGATIVE)
[2021-09-17 18:22] LABS: BACTERIA,URINE TRACE /HPF
[2021-09-17] MEDS ORDERED: HOLD METFORMIN - RECEIVED CONTRAST 20 ML VIAL IV SCH (18:45)
[2021-09-17] MEDS ORDERED: NS 100 ML (IVPB) BAG IV ONE (18:45)
[2021-09-17] MEDS ORDERED: IOHEXOL 350 MG/ML 100 ML (OMNIPAQUE 350) VIAL IV ONE (18:45)
--- NOTE | 2021-09-17 19:19 | Diagnostic Imaging Report ---
PROCEDURE: CT abdomen and pelvis with contrast. TECHNIQUE: Multiple contiguous axial images were obtained through the abdomen and pelvis after administration of intravenous contrast. Auto Exposure Controls were utilized during the CT exam to meet ALARA standards for radiation dose reduction. All CT scans use one or more of the following dose optimizing techniques: automated exposure control, MA and/or KvP adjustment based on patient size and exam type or iterative reconstruction. INDICATION: Fever and diarrhea, nausea, vomiting, weakness. COMPARISON: None. FINDINGS: There is atelectasis in the lung bases. There is a calcified granuloma in the right lung base. The heart is mildly large. There is no pericardial effusion. The liver demonstrates no focal lesions. The spleen appears normal. The pancreas is unremarkable. The adrenal glands appear normal. The kidneys demonstrate no hydronephrosis or enhancing masses. The kidneys appear mildly atrophic, likely from senescent change. There is a small hiatal hernia. The bowel loops are nondistended with no wall thickening or evidence of obstruction. The appendix is not seen, but there are no secondary findings of appendicitis. There is extensive diverticulosis of the colon without diverticulitis. No free fluid or free air is seen. There are few mildly prominent retroperitoneal lymph nodes, measuring up to 9 mm in short axis. The aorta is normal in caliber. No acute osseous abnormality is seen. There is sequela from old trauma in the pelvis. There are severe degenerative changes in the lumbar spine.The surrounding soft tissues demonstrate no acute abnormality. IMPRESSION: 1. No bowel obstruction. 2. Mildly prominent retroperitoneal lymph nodes, may be reactive. 3. Small hiatal hernia. Dictated by: Dictated on workstation # [id number]
[2021-09-17 19:55] VITALS: BP 113/86
== END 2021-09-17 19:59 | disposition home or self-care (01) ==
LOC: EDUNIT# 15:19 → ER 15:20
DX: R50.9 Fever, unspecified (principal); K21.9 Gastro-esophageal reflux disease without esophagitis; E03.9 Hypothyroidism, unspecified; G89.29 Other chronic pain; M54.9 Dorsalgia, unspecified; Z79.890 Hormone replacement therapy; Z20.822 Contact with and (suspected) exposure to COVID-19; Z79.899 Other long term (current) drug therapy; Z79.891 Long term (current) use of opiate analgesic
CPT/HCPCS: 36415; 71045; 74177; 80053; 81000; 83605; 83880; 84145; 85025; 85610; 85730; 87040; 87088; 87636